=== PATIENT | male | born 1980 | race Caucasian/White ===

== ENCOUNTER 2020-12-30 09:12 | Emergency (ER) | payer OTHER ==
[2020-12-30] MEDS ORDERED: DICLOFENAC SODI75 MG PO (09:55)
== END 2020-12-30 10:00 | disposition home or self-care (01) ==
LOC: FER 09:12
DX: M54.42 Lumbago with sciatica, left side (principal); I10 Essential (primary) hypertension; E11.9 Type 2 diabetes mellitus without complications; E78.00 Pure hypercholesterolemia, unspecified; Z79.84 Long term (current) use of oral hypoglycemic drugs; Z79.899 Other long term (current) drug therapy; Z98.890 Other specified postprocedural states
CPT/HCPCS: 99283; J1885